=== PATIENT | female | born 1930 | race Caucasian/White ===

== ENCOUNTER 2017-10-04 19:01 | Emergency (ER) | payer MEDICARE ==
[~2017-10-04] VITALS: Ht 154.9 cm; Wt 70.5 kg
[~2017-10-04 19:01] MED LIST: DOCU100S TOP; HYZA50TA2 PO; lancets; test strips
[2017-10-04 19:06] VITALS: BP 181/79; PULSE 74; RESP 16; TEMP 97.7; O2SAT 97
[2017-10-04] MEDS ORDERED: VITA100064 PO (20:14)
[2017-10-04] MEDS ORDERED: LOVA10TA PO (20:14)
[2017-10-04] MEDS ORDERED: ASPI-147 PO (20:14)
[2017-10-04] MEDS ORDERED: LOSA50TA2 PO (20:14)
[2017-10-04] MEDS ORDERED: GLYB5TAB3 PO (20:14)
[2017-10-04] MEDS ORDERED: CEPH-460 PO (20:35)
--- NOTE | 2017-10-04 20:35 | PD ---
HPI Chief Complaint: Fall Time Seen by Provider: 20:13 Travel History International Travel<30 days: No Contact w/Intl Traveler<30days: No Traveled to known affect area: No History of Present Illness HPI 87-year-old female presents emergency department for evaluation of left lower extremity wound that occurred Wednesday. Patient states that she tripped and fell landing on her hands and her leg. Says that the rug caught her, resulting in this wound. She says she may have hit her head but denies blurred vision, LOC, headache, dizziness. Her concern is that the left lower extremity wound would not stop bleeding after multiple bandages. Patient does not take blood thinners. She denies any hand, wrist, shoulder or pain elsewhere. She has no other complaints today. PFSH Past Medical History Hx Anticoagulant Therapy: No Cardiovascular Problems: Yes High Cholesterol: Yes Chemotherapy: No COPD: Yes Cerebrovascular Accident: No Diabetes: Yes Patient Takes Glucophage: No Diminished Hearing: Yes Hypertension: Yes Respiratory: Yes (COPD) Immunizations Current: Yes Tetanus Vaccination: Unknown Influenza Vaccination: Yes ?: Not Menopausal: Yes Past Surgical History Surgical History: No Previous Surgery Hysterectomy: No Social History Alcohol Use: No Tobacco Use: No Substance Use: No Allergies-Medications (Allergen,Severity, Reaction): Coded Allergies: No Known Allergies (Unverified Adverse Reaction, Unknown, 10/04/17) Reported Meds & Prescriptions Reported Meds & Active Scripts Active Keflex (Cephalexin) 500 Mg Cap 500 Mg PO Q8H 5 Days Reported Vitamin D3 (Cholecalciferol) 1,000 Unit Tab 1,000 Units PO DAILY Losartan-Hydrochlorothiazide 50-12.5 Mg Tab 1 Tab PO DAILY Ecotrin Low Strength (Aspirin) 81 Mg Tabdr 81 Mg PO DAILY Lovastatin 10 Mg Tab 10 Mg PO DAILY Glyburide 5 Mg Tab 5 Mg PO DAILY Take with meals at the same time each day Review of Systems Except as stated in HPI: all other systems reviewed are Neg Physical Exam Narrative GENERAL: Well-nourished, well-developed patient. SKIN: Focused skin assessment warm/dry. HEAD: Normocephalic. EYES: No scleral icterus. No injection or drainage. NECK: Supple, trachea midline. No JVD CARDIOVASCULAR: Regular rate and rhythm without murmurs, gallops, or rubs. RESPIRATORY: Breath sounds equal bilaterally. No accessory muscle use. GASTROINTESTINAL: Abdomen soft, non-tender, nondistended. MUSCULOSKELETAL: No cyanosis, or edema. Left lower extremity- 4cm area with 2 small skin tears, appearing clean of debris. not actively bleeding. no surrounding erythema or edema. BACK: Nontender without obvious deformity. No CVA tenderness. Data Data Last Documented VS Vital Signs Date Time Temp Pulse Resp B/P (MAP) Pulse Ox O2 Delivery O2 Flow Rate FiO2 10/04/17 19:06 97.7 74 16 181/79 (113) 97 Orders Orders Wound Care (10/04/17 20:26) Tetanus/Diphtheria Tox Adult (Tetanus/Di (10/04/17 20:45) Ed Discharge Order (10/04/17 20:38) Cephalexin (Keflex) (10/04/17 20:45) MDM Medical Decision Making Medical Screen Exam Complete: Yes Emergency Medical Condition: Yes Differential Diagnosis Left lower extremity skin tear, cellulitis, erysipelas Narrative Course 87 y female presents to the ED with concerns of a left lower extremity wound that continued to bleed this weekend after a fall that occurred Wednesday. Patient is concerned because she is a diabetic. Denies any anticoagulants or blood thinner use. She does not remember her last tetanus vaccination. Because of history and physical, I did offer head CT as patient states she may have hit her head. Cranial nerves II through XII grossly intact. No obvious weakness. Family decided to defer and I did not feel overwhelmingly compelled obtain one today based off of history and physical. Perform wound care in the emergency department today. Tetanus vaccination administered. Keflex administered in the ED. Keflex for prophylaxis. Patient discharged wound care instructions. Monitor for signs of infection. Advised to follow-up with the primary care physician. Diagnosis Primary Impression: Skin tear of left lower leg without complication Qualified Codes: S81.812A - Laceration without foreign body, left lower leg, initial encounter Referrals: Primary Care Physician Additional Instructions: Follow up with your primary care physician within 2-3 days. Keep area clean and dry for 24 hours. After 24, you may bathe as normal but dry the area thoroughly. Change top dressings daily. you may leave the yellow dressing in place until it falls off on its own or 1 week. If bleeding starts, apply pressure and elevate the area. If you developed increased redness, swelling, or pain return to the emergency department as this could be a sign of infection. Take all medications as prescribed. Scripts Cephalexin (Keflex) 500 Mg Cap 500 MG PO Q8H for Infection for 5 Days, #15 CAP 0 Refills Prov: Chelly Wallace DO 10/04/17 Disposition: 01 DISCHARGE HOME Condition: Stable Stephanie Schneider Oct 04, 2017 20:35
[2017-10-04] MEDS ORDERED: CEPHALEXIN MONOHYDRATE 500 MG CAP PO ONE (20:45)
[2017-10-04] MEDS ORDERED: TETANUS/DIPHTHERIA TOXOID ADULT 0.5 ML VIAL IM ONE (20:45)
== END 2017-10-04 20:56 | disposition home or self-care (01) ==
LOC: PHED 19:01 → PHEFT 20:56
DX: S81.812A Laceration without foreign body, left lower leg, initial encounter (principal); E78.00 Pure hypercholesterolemia, unspecified; J44.9 Chronic obstructive pulmonary disease, unspecified; E11.9 Type 2 diabetes mellitus without complications; I10 Essential (primary) hypertension; W01.0XXA Fall on same level from slipping, tripping and stumbling without subsequent striking against object, initial encounter; Z79.899 Other long term (current) drug therapy; Z23 Encounter for immunization
CPT/HCPCS: 90471; 90714

== ENCOUNTER 2017-11-22 11:36 | Emergency (ER) | payer MEDICARE ==
[~2017-11-22 11:36] MED LIST changes: +ASPI-147 PO; +CEPH-460 PO; -DOCU100S TOP; +GLYB5TAB3 PO; -HYZA50TA2 PO; +LOSA50TA2 PO; +LOVA10TA PO; +VITA100064 PO; -lancets; -test strips
[2017-11-22 11:41] VITALS: BP 138/86; PULSE 74; RESP 18; TEMP 98.3; O2SAT 94
--- NOTE | 2017-11-22 12:31 | PD ---
HPI Chief Complaint: General Weakness Time Seen by Provider: 12:18 Travel History International Travel<30 days: No Contact w/Intl Traveler<30days: No Traveled to known affect area: No History of Present Illness HPI 87-year-old female presented ER for evaluation after fall. Patient states she felt dizzy and fell hit her right foot. Patient has no loss of consciousness or vomiting she did not hit her head, she has no motor or sensory symptoms, speech is normal, complaining of right foot pain. Pain is rated 3 out of 10, comes and goes, associated with bleeding from her big toenail that stopped spontaneously. Patient has a history of diabetes and hypertension compliant with her medications. Patient states that every time she gets up from bed she feels dizzy and the symptoms is been going on for the last 2 years. PFSH Past Medical History Hx Anticoagulant Therapy: No Cardiovascular Problems: Yes High Cholesterol: Yes Chemotherapy: No COPD: Yes Cerebrovascular Accident: No Diabetes: Yes Patient Takes Glucophage: No Diminished Hearing: Yes Hypertension: Yes Respiratory: Yes (COPD) Immunizations Current: Yes ?: Not Menopausal: Yes Past Surgical History Hysterectomy: No Social History Alcohol Use: No Tobacco Use: No Substance Use: No Allergies-Medications (Allergen,Severity, Reaction): Coded Allergies: No Known Allergies (Verified Adverse Reaction, Unknown, 11/22/17) Reported Meds & Prescriptions Reported Meds & Active Scripts Active Keflex (Cephalexin) 500 Mg Cap 500 Mg PO Q12H 7 Days Reported Vitamin D3 (Cholecalciferol) 1,000 Unit Tab 1,000 Units PO DAILY Losartan-Hydrochlorothiazide 50-12.5 Mg Tab 1 Tab PO DAILY Ecotrin Low Strength (Aspirin) 81 Mg Tabdr 81 Mg PO DAILY Lovastatin 10 Mg Tab 10 Mg PO DAILY Glyburide 5 Mg Tab 5 Mg PO DAILY Take with meals at the same time each day Review of Systems Except as stated in HPI: all other systems reviewed are Neg Physical Exam Narrative GENERAL: Alert oriented 3 no acute distress. SKIN: Focused skin assessment warm/dry. HEAD: Atraumatic. Normocephalic. EYES: Pupils equal and round. No scleral icterus. No injection or drainage. ENT: No nasal bleeding or discharge. Mucous membranes pink and moist. NECK: Trachea midline. No JVD. CARDIOVASCULAR: Regular rate and rhythm. No murmur appreciated. RESPIRATORY: No accessory muscle use. Clear to auscultation. Breath sounds equal bilaterally. GASTROINTESTINAL: Abdomen soft, non-tender, nondistended. Hepatic and splenic margins not palpable. MUSCULOSKELETAL: No obvious deformities. No clubbing. No cyanosis. No edema. NEUROLOGICAL: Awake and alert. No obvious cranial nerve deficits. Motor grossly within normal limits. Normal speech. PSYCHIATRIC: Appropriate mood and affect; insight and judgment normal. Data Data Last Documented VS Vital Signs Date Time Temp Pulse Resp B/P (MAP) Pulse Ox O2 Delivery O2 Flow Rate FiO2 11/22/17 15:42 11/22/17 15:19 67 20 94 11/22/17 11:41 98.3 Orders Orders B-Type Natriuretic Peptide (11/22/17 12:25) Ckmb (Isoenzyme) Profile (11/22/17 12:25) Complete Blood Count With Diff (11/22/17 12:25) Comprehensive Metabolic Panel (11/22/17 12:25) Troponin I (11/22/17 12:25) Chest, Single Ap (11/22/17 12:25) Orthostatic Vital Signs (11/22/17 12:25) Thyroid Stimulating Hormone (11/22/17 12:25) Ct Brain W/O Iv Contrast(Rout) (11/22/17 ) Foot, Complete ([id number]) (11/22/17 ) CKMB (11/22/17 12:30) CKMB% (11/22/17 12:30) Sodium Chlor 0.9% 1000 Ml Inj (Ns 1000 M (11/22/17 14:00) Ed Discharge Order (11/22/17 14:22) Urinalysis - C+S If Indicated (11/22/17 14:28) Labs Laboratory Tests Test 11/22/17 12:30 11/22/17 14:30 11/22/17 15:15 White Blood Count 7.6 TH/MM3 Red Blood Count 3.38 MIL/MM3 Hemoglobin 11.0 GM/DL Hematocrit 32.1 % Mean Corpuscular Volume 94.9 FL Mean Corpuscular Hemoglobin 32.5 PG Mean Corpuscular Hemoglobin Concent 34.3 % Red Cell Distribution Width 12.7 % Platelet Count 227 TH/MM3 Mean Platelet Volume 6.9 FL Neutrophils (%) (Auto) 82.8 % Lymphocytes (%) (Auto) 9.6 % Monocytes (%) (Auto) 5.2 % Eosinophils (%) (Auto) 2.1 % Basophils (%) (Auto) 0.3 % Neutrophils # (Auto) 6.3 TH/MM3 Lymphocytes # (Auto) 0.7 TH/MM3 Monocytes # (Auto) 0.4 TH/MM3 Eosinophils # (Auto) 0.2 TH/MM3 Basophils # (Auto) 0.0 TH/MM3 CBC Comment DIFF FINAL Differential Comment B-Type Natriuretic Peptide 92 PG/ML Thyroid Stimulating Hormone 3rd Gen 1.980 uIU/ML Urine Color YELLOW Urine Turbidity CLEAR Urine pH 6.5 Urine Specific [place] 1.010 Urine Protein NEG mg/dL Urine Glucose (UA) NEG mg/dL Urine Ketones NEG mg/dL Urine Occult Blood NEG Urine Nitrite NEG Urine Bilirubin NEG Urine Urobilinogen 0.2 MG/DL Urine Leukocyte Esterase SMALL Urine RBC 0-3 /hpf Urine WBC 0-2 /hpf Urine Squamous Epithelial Cells 0-5 /hpf Urine Bacteria FEW /hpf Microscopic Urinalysis Comment CULT NOT INDICATED Blood Urea Nitrogen 21 MG/DL Creatinine 1.20 MG/DL Random Glucose 192 MG/DL Total Protein 7.4 GM/DL Albumin 3.8 GM/DL Calcium Level 8.6 MG/DL Alkaline Phosphatase 86 U/L Aspartate Amino Transf (AST/SGOT) 9 U/L Alanine Aminotransferase (ALT/SGPT) 25 U/L Total Bilirubin 0.3 MG/DL Sodium Level 131 MEQ/L Potassium Level 4.6 MEQ/L Chloride Level 96 MEQ/L Carbon Dioxide Level 27.4 MEQ/L Anion Gap 8 MEQ/L Estimat Glomerular Filtration Rate 43 ML/MIN Total Creatine Kinase 152 U/L Creatine Kinase MB 2.2 NG/ML Troponin I 0.02 NG/ML [facility] Medical Decision Making Medical Screen Exam Complete: Yes Emergency Medical Condition: Yes Differential Diagnosis Orthostatic hypotension, dehydration, intracranial pathology. Narrative Course 87-year-old female presented ER for evaluation of fall after feeling dizzy. Patient states that she has been feeling dizzy for the last 2 years that comes and goes. Patient has history of diabetes and hypertension. Patient reports that she gets dizzy every time she gets up fast from the bed. Orthostatics ER normal, vitals are stable, low sodium but corrected sodium is 133 for hyperglycemia, patient was given IV fluids here and she improved and she does not feel any dizzy anymore, CAT scan is negative, x-ray of the right foot is negative. Patient is stable to be discharged to follow-up with her primary care physician and to return to your symptoms change or do not improve. Laboratory Tests Test 11/22/17 12:30 White Blood Count 7.6 TH/MM3 Red Blood Count 3.38 MIL/MM3 Hemoglobin 11.0 GM/DL Hematocrit 32.1 % Mean Corpuscular Volume 94.9 FL Mean Corpuscular Hemoglobin 32.5 PG Mean Corpuscular Hemoglobin Concent 34.3 % Red Cell Distribution Width 12.7 % Platelet Count 227 TH/MM3 Mean Platelet Volume 6.9 FL Neutrophils (%) (Auto) 82.8 % Lymphocytes (%) (Auto) 9.6 % Monocytes (%) (Auto) 5.2 % Eosinophils (%) (Auto) 2.1 % Basophils (%) (Auto) 0.3 % Neutrophils # (Auto) 6.3 TH/MM3 Lymphocytes # (Auto) 0.7 TH/MM3 Monocytes # (Auto) 0.4 TH/MM3 Eosinophils # (Auto) 0.2 TH/MM3 Basophils # (Auto) 0.0 TH/MM3 CBC Comment DIFF FINAL Differential Comment Blood Urea Nitrogen 21 MG/DL Creatinine 1.20 MG/DL Random Glucose 192 MG/DL Total Protein 7.4 GM/DL Albumin 3.8 GM/DL Calcium Level 8.6 MG/DL Alkaline Phosphatase 86 U/L Aspartate Amino Transf (AST/SGOT) 9 U/L Alanine Aminotransferase (ALT/SGPT) 25 U/L Total Bilirubin 0.3 MG/DL Sodium Level 131 MEQ/L Potassium Level 4.6 MEQ/L Chloride Level 96 MEQ/L Carbon Dioxide Level 27.4 MEQ/L Anion Gap 8 MEQ/L Estimat Glomerular Filtration Rate 43 ML/MIN Total Creatine Kinase 152 U/L Troponin I 0.02 NG/ML B-Type Natriuretic Peptide 92 PG/ML Thyroid Stimulating Hormone 3rd Gen 1.980 uIU/ML Last 24 hours Impressions Chest X-Ray 11/22/17 1225 Signed Impressions: CONCLUSION: Cardiomegaly. Clear lungs. Head CT 11/22/17 0000 Signed Impressions: CONCLUSION: 1. Negative CT Head non contrast. Foot X-Ray 11/22/17 0000 Signed Impressions: CONCLUSION: No acute abnormality. Diagnosis Primary Impression: Orthostatic hypotension Additional Impressions: Fall Qualified Codes: W19.XXXA - Unspecified fall, initial encounter UTI (urinary tract infection) Qualified Codes: N39.0 - Urinary tract infection, site not specified Additional Instructions: Follow-up with primary care physician and return here if symptoms change or do not improve. Scripts Cephalexin (Keflex) 500 Mg Cap 500 MG PO Q12H for Infection for 7 Days, #14 CAP 0 Refills Prov: Tolu Akhtar MD 11/22/17 Disposition: 01 DISCHARGE HOME Condition: Stable Tolu Akhtar MD Nov 22, 2017 12:31
[2017-11-22 12:39] VITALS: BP_SYST 156; BP_SYST 160; BP_SYST 164; BP_DIAS 65; BP_DIAS 68; BP_DIAS 69; RESP 20
[2017-11-22 12:51] LABS: AUTOMATED NEUTROPHIL # 6.3 TH/MM3 (1.8-7.7); BASOPHIL % 0.3 % (0.0-2.0); EOSINOPHIL # 0.2 TH/MM3 (0-0.4); EOSINOPHIL % 2.1 % (0.0-4.0); HEMATOCRIT 32.1 % (35.0-46.0); LYMPH % 9.6 % (9.0-44.0); LYMPHOCYTE # 0.7 TH/MM3 (1.0-4.8); MEAN CELL VOLUME 94.9 FL (80.0-100.0); MEAN CORPUSCULAR HEMOGLOBIN 32.5 PG (27.0-34.0); MEAN CORPUSCULAR HGB CONC 34.3 % (32.0-36.0); MEAN PLATELET VOLUME 6.9 FL (7.0-11.0); MONO % 5.2 % (0.0-8.0); MONOCYTE # 0.4 TH/MM3 (0-0.9); NEUT % 82.8 % (16.0-70.0); PLATELET COUNT 227 TH/MM3 (150-450); RED BLOOD COUNT 3.38 MIL/MM3 (4.00-5.30); RED CELL DISTRIBUTION WIDTH 12.7 % (11.6-17.2); WHITE BLOOD COUNT 7.6 TH/MM3 (4.0-11.0)
[2017-11-22 12:55] LABS: CHLORIDE 96 MEQ/L (98-107); SODIUM (NA) 131 MEQ/L (136-145)
[2017-11-22 12:59] LABS: ALBUMIN 3.8 GM/DL (3.4-5.0); BICARBONATE 27.4 MEQ/L (21.0-32.0); CALCIUM 8.6 MG/DL (8.5-10.1)
[2017-11-22 13:00] LABS: BLOOD UREA NITROGEN 21 MG/DL (7-18); GLUCOSE,RANDOM 192 MG/DL (74-106)
[2017-11-22 13:02] LABS: ALT (GPT) 25 U/L (10-53)
[2017-11-22 13:03] LABS: AST (GOT) 9 U/L (15-37); GLOMERULAR FILTRATION RATE 43 ML/MIN (>89)
[2017-11-22 13:04] LABS: TOTAL BILIRUBIN ADULT 0.3 MG/DL (0.2-1.0); TOTAL PROTEIN 7.4 GM/DL (6.4-8.2)
[2017-11-22 13:05] LABS: ALKALINE PHOSPHATASE 86 U/L (45-117)
[2017-11-22 13:07] LABS: TROPONIN I 0.02 NG/ML (0.02-0.05)
--- NOTE | 2017-11-22 13:27 | RADRPT ---
EXAM DATE: 11/22/2017 1:18 PM EDT AGE/SEX: 87 years / Female INDICATIONS: Dizziness, Patient Fell CLINICAL DATA: This is the patient's initial encounter. Patient reports that signs and symptoms have been present for 1 day and indicates a pain score of 3/10. MEDICAL/SURGICAL HISTORY: Diabetes. Chronic obstructive pulmonary disease. Hypertension. None . COMPARISON: POI, CT CHEST W/O CONTRAST, 04/19/2017. . FINDINGS: A single AP view of the chest demonstrates cardiomegaly. No pulmonary vascular engorgement appreciate d. A prominent pericardial fat pad at the right cardiophrenic angle generates a focal density. No infilt rate or effusion. A degenerative spine. CONCLUSION: Cardiomegaly. Clear lungs. Electronically signed by: Isidoro Lobo MD 11/22/2017 1:26 PM EDT
--- NOTE | 2017-11-22 13:28 | RADRPT ---
EXAM DATE: 11/22/2017 1:16 PM EDT AGE/SEX: 87 years / Female INDICATIONS: Laceration of Great toe CLINICAL DATA: This is the patient's initial encounter. Patient reports that signs and symptoms have been present for 1 day and indicates a pain score of 4/10. MEDICAL/SURGICAL HISTORY: Diabetes. Hypertension. Chronic obstructive pulmonary disease. None . COMPARISON: No prior exams available for comparison. FINDINGS: Bony structures are intact and in normal alignment. Osseous density is normal. Soft tissues are unre markable. No radiopaque foreign bodies seen. CONCLUSION: No acute abnormality. Electronically signed by: Isidoro Lobo MD 11/22/2017 1:27 PM EDT
--- NOTE | 2017-11-22 13:31 | RADRPT ---
EXAM DATE: 11/22/2017 1:24 PM EDT AGE/SEX: 87 years / Female INDICATIONS: Possible syncopal episode today. CLINICAL DATA: This is the patient's initial encounter. Patient reports that signs and symptoms have been present for 1 day and indicates a pain score of 0/10. MEDICAL/SURGICAL HISTORY: Chronic obstructive pulmonary disease. Diabetes. Hypertension. None. RADIATION DOSE: 54.06 CTDI (mGy) COMPARISON: No prior exams available for comparison. TECHNIQUE: CT of the head without contrast. Using automated exposure control and adjustment of the mA and/or kV according to patient size, radiation dose was kept as low as reasonably achievable to ob tain optimal diagnostic quality images. FINDINGS: Cerebrum: The ventricles are normal for age. No evidence of midline shift, mass lesion, hemorrhage or acute infarction. No extraaxial fluid collections are seen. Posterior Fossa: The cerebellum and brainstem are intact. The 4th ventricle is midline. The cerebe llopontine angle is unremarkable. Extracranial: The visualized portion of the orbits is intact. Skull: The calvaria is intact. No evidence of skull fracture. CONCLUSION: 1. Negative CT Head non contrast. Electronically signed by: Tj Doll MD 11/22/2017 1:30 PM EDT
[2017-11-22 13:47] VITALS: BP 165/67; PULSE 65; RESP 20; O2SAT 94
[2017-11-22] MEDS ORDERED: SODIUM CHLOR 0.9% 1000 ML INJ 1,000 ML IV ONE (14:00)
[2017-11-22 14:48] LABS: BILIRUBIN, URINE NEG (NEG); BLOOD, URINE NEG (NEG); GLUCOSE,URINE NEG (NEG); KETONE, URINE NEG (NEG); NITRITE,URINE NEG (NEG); PH, URINE 6.5 (5.0-8.5); URINE COLOR YELLOW (YELLW/STRAW); URINE LEUKOCYTE ESTERASE SMALL (NEG)
[2017-11-22 15:03] LABS: BACTERIA, URINE FEW /hpf; RBC, URINE 0-3 /hpf (0-3); SQUAMOUS EPITHELIAL CELL URINE 0-5 /hpf (0-5); WBC, URINE 0-2 /hpf (0-5)
[2017-11-22] MEDS ORDERED: CEPH-460 PO (15:05)
[2017-11-22 15:19] VITALS: BP 164/90; PULSE 67; RESP 20; O2SAT 94
== END 2017-11-22 15:43 | disposition home or self-care (01) ==
LOC: PHED 11:36
DX: I95.1 Orthostatic hypotension (principal); N39.0 Urinary tract infection, site not specified; I51.7 Cardiomegaly; R42 Dizziness and giddiness; E11.9 Type 2 diabetes mellitus without complications; I10 Essential (primary) hypertension; E78.00 Pure hypercholesterolemia, unspecified; J44.9 Chronic obstructive pulmonary disease, unspecified; Z79.899 Other long term (current) drug therapy
CPT/HCPCS: 70450; 71045; 73630; 80053; 81001; 82550; 82552; 83880; 84443; 84484; 85025; 96360; 99285; J7030

== ENCOUNTER 2017-12-07 13:40 | Emergency (ER) | payer MEDICARE ==
[~2017-12-07] VITALS: Ht 152.4 cm; Wt 70.0 kg
[2017-12-07 14:01] VITALS: BP 145/63; PULSE 75; RESP 18; TEMP 98.1; O2SAT 98
[2017-12-07] MEDS ORDERED: SODIUM CHLOR 0.9% 1000 ML INJ 1,000 ML IV ONE (14:45)
[2017-12-07] MEDS ORDERED: RESP: ALBUTEROL 2.5 MG/IPRATROPIUM 0.5 MG NEB (SCH) NEB ONE (14:45)
[2017-12-07] MEDS ORDERED: TIOT1AER INH (14:45)
--- NOTE | 2017-12-07 14:46 | PD ---
HPI Chief Complaint: Dizziness Time Seen by Provider: 14:25 Travel History International Travel<30 days: No Contact w/Intl Traveler<30days: No Traveled to known affect area: No History of Present Illness HPI This is an 87-year-old female who presents to the emergency department with lightheadedness and dizziness that have been going on for 2 weeks or longer, intermittent, worse with exertion and improved with rest associated with increasing shortness of breath. The patient has a history of COPD but only takes one inhaler a day. She has been having frequent falls. She was seen for a fall 2 weeks ago and had an extensive workup at that time which was reassuring. She has not seen her primary care doctor since that episode. She denies any chest pain. She comes in today because this morning she felt very lightheaded and felt like she was going to pass out. She denies any blood in her stools. PFSH Past Medical History Hx Anticoagulant Therapy: No Cardiovascular Problems: Yes High Cholesterol: Yes Chemotherapy: No COPD: Yes Cerebrovascular Accident: No Diabetes: Yes Patient Takes Glucophage: Yes Diminished Hearing: Yes Hypertension: Yes Respiratory: Yes (COPD) Immunizations Current: Yes Influenza Vaccination: Yes ?: Not Menopausal: Yes Past Surgical History Surgical History: No Previous Surgery Hysterectomy: No Social History Alcohol Use: No Tobacco Use: No Substance Use: No Allergies-Medications (Allergen,Severity, Reaction): Coded Allergies: No Known Allergies (Verified Adverse Reaction, Unknown, 12/07/17) Reported Meds & Prescriptions Reported Meds & Active Scripts Active Proair Hfa 8.5 GM Inh (Albuterol Sulfate) 90 Mcg/Act Aer 2 Puff INH Q4-6H PRN 108 mcg/actuation Reported Stiolto Respimat Inh (Tiotropium-Olodaterol Inh) 2.5-2.5 Mcg/Act Aero 2 Puff INH DAILY Vitamin D3 (Cholecalciferol) 1,000 Unit Tab 1,000 Units PO DAILY Losartan-Hydrochlorothiazide 50-12.5 Mg Tab 1 Tab PO DAILY Ecotrin Low Strength (Aspirin) 81 Mg Tabdr 81 Mg PO DAILY Glyburide 5 Mg Tab 5 Mg PO DAILY Take with meals at the same time each day Review of Systems Except as stated in HPI: all other systems reviewed are Neg Physical Exam Narrative GENERAL: Frail elderly female SKIN: Pale HEAD: Atraumatic. Normocephalic. EYES: Pupils equal and round. No injection or drainage. ENT: Moist mucous membranes NECK: Trachea midline. CARDIOVASCULAR: Regular rate and rhythm. No murmur appreciated. RESPIRATORY: Mild diffuse expiratory wheezing GASTROINTESTINAL: Abdomen soft, non-tender, nondistended. MUSCULOSKELETAL: No obvious deformities. NEUROLOGICAL: Awake and alert. No obvious cranial nerve deficits. Moving all extremities. PSYCHIATRIC: Appropriate mood and affect; insight and judgment normal. Data Data Last Documented VS Vital Signs Date Time Temp Pulse Resp B/P (MAP) Pulse Ox O2 Delivery O2 Flow Rate FiO2 12/07/17 15:02 70 17 146/59 (88) 96 Room Air 12/07/17 14:01 98.1 Orders Orders Complete Blood Count With Diff (12/07/17 14:37) Comprehensive Metabolic Panel (12/07/17 14:37) Albuterol-Ipratropium Neb (Duoneb Neb) (12/07/17 14:45) Troponin I (12/07/17 14:37) Sodium Chlor 0.9% 1000 Ml Inj (Ns 1000 M (12/07/17 14:45) ^ Insert Iv (12/07/17 14:38) Labs Laboratory Tests Test 12/07/17 14:57 White Blood Count 5.5 TH/MM3 Red Blood Count 3.17 MIL/MM3 Hemoglobin 10.3 GM/DL Hematocrit 29.3 % Mean Corpuscular Volume 92.4 FL Mean Corpuscular Hemoglobin 32.5 PG Mean Corpuscular Hemoglobin Concent 35.2 % Red Cell Distribution Width 12.8 % Platelet Count 266 TH/MM3 Mean Platelet Volume 6.4 FL Neutrophils (%) (Auto) 79.3 % Lymphocytes (%) (Auto) 12.5 % Monocytes (%) (Auto) 5.2 % Eosinophils (%) (Auto) 2.3 % Basophils (%) (Auto) 0.7 % Neutrophils # (Auto) 4.4 TH/MM3 Lymphocytes # (Auto) 0.7 TH/MM3 Monocytes # (Auto) 0.3 TH/MM3 Eosinophils # (Auto) 0.1 TH/MM3 Basophils # (Auto) 0.0 TH/MM3 CBC Comment DIFF FINAL Differential Comment Blood Urea Nitrogen 19 MG/DL Creatinine 1.10 MG/DL Random Glucose 217 MG/DL Total Protein 7.2 GM/DL Albumin 3.8 GM/DL Calcium Level 8.6 MG/DL Alkaline Phosphatase 85 U/L Aspartate Amino Transf (AST/SGOT) 6 U/L Alanine Aminotransferase (ALT/SGPT) 22 U/L Total Bilirubin 0.2 MG/DL Sodium Level 130 MEQ/L Potassium Level 4.4 MEQ/L Chloride Level 94 MEQ/L Carbon Dioxide Level 27.7 MEQ/L Anion Gap 8 MEQ/L Estimat Glomerular Filtration Rate 47 ML/MIN Troponin I LESS THAN 0.02 NG/ML MDM Medical Decision Making Medical Screen Exam Complete: Yes Emergency Medical Condition: Yes Interpretation(s) afebrile, no tachycardia, mild hypertension anemia similar to prior Mild hyponatremia Mild renal insufficiency Troponin is normal Differential Diagnosis Anemia, electrolyte abnormality, dehydration, myocardial infarction, arrhythmia , COPD exacerbation Narrative Course This is an 87-year-old female who presents to the emergency department with increasing lightheadedness, dizziness and exertional intolerance over the past several weeks. She had an extensive workup 2 weeks ago in the emergency department which was reassuring. She is wheezing on exam. Given the description of her symptoms I think her COPD is out of control. She was given a bronchodilator treatment and she feels better. She will be discharged on albuterol and prednisone and was asked to follow-up with her primary care physician for continued workup. Diagnosis Primary Impression: COPD (chronic obstructive pulmonary disease) Qualified Codes: J44.1 - Chronic obstructive pulmonary disease with (acute) exacerbation Patient Instructions: General Instructions Additional Instructions: If you develop severe shortness of breath, chest pain, or difficulty breathing return to the emergency department. Use albuterol every 4 hours for the next 2 days. Then use as needed for wheezing. Complete your course of steroids. Follow up with your primary care physician in 2-3 days if your symptoms have not improved. Med/Other Pt SpecificInfo: Prescription(s) given Scripts Prednisone (Prednisone) 20 Mg Tab 40 MG PO DAILY, #10 TAB 0 Refills Take 40 mg (2 tablets) daily for 5 days Prov: Laurel Lubin MD 12/07/17 Albuterol 8.5 GM Inh (Proair Hfa 8.5 GM Inh) 90 Mcg/Act Aer 2 PUFF INH Q4-6H Y for SHORTNESS OF BREATH, #1 INHALER 0 Refills 108 mcg/actuation Prov: Laurel Lubin MD 12/07/17 Disposition: 01 DISCHARGE HOME Condition: Stable Laurel Lubin MD Dec 07, 2017 14:46
[2017-12-07 15:02] VITALS: BP 146/59; PULSE 70; RESP 17; O2SAT 96
[2017-12-07 15:04] LABS: AUTOMATED NEUTROPHIL # 4.4 TH/MM3 (1.8-7.7); BASOPHIL % 0.7 % (0.0-2.0); EOSINOPHIL # 0.1 TH/MM3 (0-0.4); EOSINOPHIL % 2.3 % (0.0-4.0); HEMATOCRIT 29.3 % (35.0-46.0); HEMOGLOBIN 10.3 GM/DL (11.6-15.3); LYMPH % 12.5 % (9.0-44.0); LYMPHOCYTE # 0.7 TH/MM3 (1.0-4.8); MEAN CELL VOLUME 92.4 FL (80.0-100.0); MEAN CORPUSCULAR HEMOGLOBIN 32.5 PG (27.0-34.0); MEAN CORPUSCULAR HGB CONC 35.2 % (32.0-36.0); MEAN PLATELET VOLUME 6.4 FL (7.0-11.0); MONO % 5.2 % (0.0-8.0); MONOCYTE # 0.3 TH/MM3 (0-0.9); NEUT % 79.3 % (16.0-70.0); PLATELET COUNT 266 TH/MM3 (150-450); RED BLOOD COUNT 3.17 MIL/MM3 (4.00-5.30); RED CELL DISTRIBUTION WIDTH 12.8 % (11.6-17.2); WHITE BLOOD COUNT 5.5 TH/MM3 (4.0-11.0)
[2017-12-07 15:21] LABS: CHLORIDE 94 MEQ/L (98-107); SODIUM (NA) 130 MEQ/L (136-145)
[2017-12-07 15:24] LABS: ALBUMIN 3.8 GM/DL (3.4-5.0); BICARBONATE 27.7 MEQ/L (21.0-32.0); CALCIUM 8.6 MG/DL (8.5-10.1); GLUCOSE,RANDOM 217 MG/DL (74-106)
[2017-12-07 15:25] LABS: BLOOD UREA NITROGEN 19 MG/DL (7-18)
[2017-12-07 15:27] LABS: ALT (GPT) 22 U/L (10-53)
[2017-12-07 15:28] LABS: AST (GOT) 6 U/L (15-37); GLOMERULAR FILTRATION RATE 47 ML/MIN (>89)
[2017-12-07 15:29] LABS: TOTAL BILIRUBIN ADULT 0.2 MG/DL (0.2-1.0); TOTAL PROTEIN 7.2 GM/DL (6.4-8.2)
[2017-12-07 15:30] LABS: ALKALINE PHOSPHATASE 85 U/L (45-117)
[2017-12-07 15:32] LABS: TROPONIN I LESS THAN 0.02 NG/ML (0.02-0.05)
[2017-12-07] MEDS ORDERED: ALBUAER3 INH (16:22)
[2017-12-07] MEDS ORDERED: PRED20 PO (17:06)
[2017-12-07 17:17] VITALS: BP 159/71
--- NOTE | 2017-12-08 21:19 | EKG ---
Date Performed: 12/07/2017 Time Performed: 16:23:26 PTAGE: 87 years EKG: Sinus rhythm WITH FIRST DEGREE AV BLOCK LOW QRS VOLTAGE IN PRECORDIAL LEADS MINIMAL ST DEPRESSION ABNORMAL ECG PREVIOUS TRACING : 12/17/2011 11.21 Since the previous tracing, no significant change noted DOCTOR: Chapo Ingram Interpretating Date/Time 12/08/2017 21:18:22
== END 2017-12-07 17:20 | disposition home or self-care (01) ==
LOC: PHEFT 13:40
DX: J44.1 Chronic obstructive pulmonary disease with (acute) exacerbation (principal); R42 Dizziness and giddiness; I10 Essential (primary) hypertension; E11.9 Type 2 diabetes mellitus without complications; R94.31 Abnormal electrocardiogram [ECG] [EKG]; Z79.84 Long term (current) use of oral hypoglycemic drugs
CPT/HCPCS: 80053; 84484; 85025; 93005; 94664; 96360; 99284; J7030

== ENCOUNTER 2017-12-17 11:26 | Inpatient (IN) ==
--- NOTE | 2017-12-17 11:47 | ED ---
HPI General Chief Complaint: Fall Stated Complaint: Lt Thigh Pain after fall Time Seen by Provider: 12/17/17 11:37 Source: patient and family (Daughter) Mode of arrival: EMS (Patient has to use walker but uses only when she remembers as per the daughter) Limitations: no limitations History of Present Illness HPI Narrative: 87-year-old female came to the emergency room brought by EMS after sustaining a fall at her home. The history is obtained from the daughter as well as the patient. Patient says that her legs gave out as she was walking and she fell. She injured mostly the left side of her body and the reason she is in the emergency room is because her left leg in the proximal thigh in the hip area has been hurting. She points mostly to the buttock area. Patient says that she thinks she hit her head on the left side as well. The daughter says that she supposed to use her walker but she sometimes forgets. The walker is mainly to assist her because she has fallen a few times due to dizziness. However today she denies being dizzy. Denies any syncopal episodes. Patient was unable to get up from the floor after she fell. The daughter came home 20 minutes after the patient fell and helped her stand up. She called 911. Patient lives by herself. Daughter found her awake and talking. Patient takes one baby aspirin every day. Vital signs are currently stable. She is answering questions appropriately. Patient has her left elbow bandaged by EMS. Apparently there was a cut there that was bleeding. As per the daughter she had her last tetanus shot last month. Onset (ago): minute(s) (30) Fall from: standing Place fall occurred: home Loss of consciousness: none Prolonged down time: no Symptoms prior to fall: other (Legs gave out) Location of injury: buttocks (Left) Location of injury - extremities: Left: elbow (Skin tear with bleeding) Severity: moderate Severity scale (1-10): 6 Quality: dull Associated symptoms (after fall): unable to walk Related Data Home Medications Medication Instructions Recorded Confirmed aspirin [Aspir-81] 81 mg PO DAILY 12/17/17 12/17/17 cholecalciferol (vitamin D3) 1,000 unit PO DAILY 12/17/17 12/17/17 [Vitamin D3] glyburide 5 mg PO HS 07/06/18 07/06/18 lovastatin 10 mg PO HS 12/17/17 12/17/17 Allergies Allergy/AdvReac Type Severity Reaction Status Date / Time No Known Allergies Allergy Unverified 12/17/17 11:34 Review of Systems ROS Unobtainable All other systems reviewed negative except as stated in HPI Musculoskeletal Reports as per HPI and Reports limited range of motion [facility] History History Provided By: Patient and Family Member (Daughter) Social History Social History Substance History: No History of Abuse Second Hand Smoke Exposure: No Smoking Status: Former smoker Tobacco Type: Cigarettes How Often Do You Have a Drink Containing Alcohol: Never Recent Travel in [facility] within the Last 8 Weeks: No Recent Out of Country Travel within the Last 8 Weeks: No Immunization History Tetanus Immunization: <5 Years Tetanus Immunization Year if Known: Last month this year Exam Narrative Exam Narrative: GENERAL: Awake, alert, elderly, moderate distress SKIN: Focused skin assessment warm/dry. Pale. Left elbow has a 5 cm skin tear , bleeding controlled HEAD: Atraumatic. Normocephalic. EYES: Pupils equal and round. No scleral icterus. No injection or drainage. ENT: No nasal bleeding or discharge. Mucous membranes pink and moist. NECK: Trachea midline. No JVD. CARDIOVASCULAR: Regular rate and rhythm. No murmur appreciated. RESPIRATORY: No accessory muscle use. Clear to auscultation. Breath sounds equal bilaterally. GASTROINTESTINAL: Abdomen soft, non-tender, nondistended. Hepatic and splenic margins not palpable. MUSCULOSKELETAL: No obvious deformities. No clubbing. No cyanosis. No edema. Decreased range of motion at the left knee and hip joint mainly due to the pain. No leg length discrepancy. NEUROLOGICAL: Awake and alert. No obvious cranial nerve deficits. Motor grossly within normal limits. Normal speech. PSYCHIATRIC: Appropriate mood and affect; insight and judgment normal. Course Reevaluation(s) Reevaluation #1: Awaiting for the x-ray of the femur and pelvis. I have ordered a CT scan of her head as well. Awaiting for blood test results. Patient has been medicated for pain. If the x-ray is negative for fracture then I will order a CT scan to rule out any subtle fracture since the pain seems to be significant. Time: 11:57 Initial Documented Vital Signs Temperature 97.9 F 12/17/17 11:29 Pulse Rate 81 07/06/18 11:29 Respiratory Rate 16 12/17/17 11:29 Blood Pressure 155/107 H 12/17/17 11:29 Pulse Oximetry 95 12/17/17 11:29 Last Documented Vital Signs Temperature 96.8 F L 12/18/17 08:01 Pulse Rate 64 12/18/17 08:01 Respiratory Rate 20 12/18/17 08:01 Blood Pressure 166/70 H 12/18/17 08:01 Pulse Oximetry 95 12/18/17 08:01 Medical Decision Making MDM Narrative Medical decision making narrative: CT head is negative. X-ray of the hip and pelvis shows left inferior and superior pubic ramus fractures that are nondisplaced. Patient remains hemodynamically stable. Blood test results suggestive of slight dehydration. I will give her a 500 cc fluid bolus. I put a call out for the orthopedist. I discussed the case with the orthopedist Dr. Duarte who informed me that he had looked at the x-ray and the injuries appear to be nonoperative. I discussed with the hospitalist and I have admitted the patient. She will require rehab. I have informed the patient and the daughter of the test results as well as the plan. They are okay with the plan. Lab Data Result diagrams: 12/17/17 12:00 12/17/17 12:00 Lab Results 12/17/17 12/17/17 12/17/17 Range/Units 12:00 12:00 12:00 CBC w Diff Auto diff final WBC 10.2 (4.0-11.0) th/mm3 RBC 3.33 L (4.00-5.30) mil/mm3 Hgb 10.6 L (11.6-15.3) gm/dL Hct 31.6 L (35.0-46.0) % MCV 94.6 (80.0-100.0) fL MCH 31.8 (27.0-34.0) pg MCHC 33.6 (32.0-36.0) % RDW 12.7 (11.6-17.2) % Plt Count 241 (150-450) th/mm3 MPV 6.8 L (7.0-11.0) fL Neut % (Auto) 87.5 H (16.0-70.0) % Lymph % (Auto) 5.6 L (9.0-44.0) % [place] % (Auto) 4.8 (0.0-8.0) % Eos % (Auto) 0.7 (0.0-4.0) % Baso % (Auto) 1.4 (0.0-2.0) % Neut # (Auto) 8.9 H (1.8-7.7) th/mm3 Lymph # (Auto) 0.6 L (1.0-4.8) th/mm3 [place] # (Auto) 0.5 (0.0-0.9) th/mm3 Eos # (Auto) 0.1 (0.0-0.4) th/mm3 Baso # (Auto) 0.1 (0.0-0.2) th/mm3 WBC Differential . Differential Comment . PT 10.4 (9.8-11.6) sec INR 1.0 Ratio Sodium 134 L (136-145) meq/L Potassium 4.6 (3.5-5.1) meq/L Chloride 97 L (98-107) meq/L Carbon Dioxide 25.9 (21.0-32.0) meq/L Anion Gap 11 (5-15) meq/L BUN 23 H (7-18) mg/dL Creatinine 1.30 H (0.50-1.00) mg/dL Estimated GFR 39 L (>89) mL/min POC Glucose (68-110) mg/dl Random Glucose 248 H (74-106) mg/dL Calcium 8.7 (8.5-10.1) mg/dL Troponin I 0.02 (0.02-0.05) ng/mL Ur Collection Type Urine Color (Yellw/Straw) Urine Clarity (Clear) Urine pH (5.0-8.5) Ur Specific [place] (1.002-1.035) Urine Protein (Neg-Trace) mg/dL Urine Glucose (UA) (Negative) mg/dL Urine Ketones (Negative) mg/dL Urine Occult Blood (Negative) Urine Nitrate (Negative) Urine Bilirubin (Negative) Urine Urobilinogen (Less than 2) mg/dL Ur Leukocyte Esterase (Negative) Urine RBC (0-3) /hpf Urine WBC (0-5) /hpf Ur Squamous Epith Cells (0-5) /hpf Hyaline Casts (0-3) /lpf Micro UA Comment Urine Culture Comments 12/17/17 12/17/17 12/17/17 Range/Units 12:00 15:37 21:13 CBC w Diff WBC (4.0-11.0) th/mm3 RBC (4.00-5.30) mil/mm3 Hgb (11.6-15.3) gm/dL Hct (35.0-46.0) % MCV (80.0-100.0) fL MCH (27.0-34.0) pg MCHC (32.0-36.0) % RDW (11.6-17.2) % Plt Count (150-450) th/mm3 MPV (7.0-11.0) fL Neut % (Auto) (16.0-70.0) % Lymph % (Auto) (9.0-44.0) % [place] % (Auto) (0.0-8.0) % Eos % (Auto) (0.0-4.0) % Baso % (Auto) (0.0-2.0) % Neut # (Auto) (1.8-7.7) th/mm3 Lymph # (Auto) (1.0-4.8) th/mm3 [place] # (Auto) (0.0-0.9) th/mm3 Eos # (Auto) (0.0-0.4) th/mm3 Baso # (Auto) (0.0-0.2) th/mm3 WBC Differential Differential Comment PT (9.8-11.6) sec INR Ratio Sodium (136-145) meq/L Potassium (3.5-5.1) meq/L Chloride (98-107) meq/L Carbon Dioxide (21.0-32.0) meq/L Anion Gap (5-15) meq/L BUN (7-18) mg/dL Creatinine (0.50-1.00) mg/dL Estimated GFR (>89) mL/min POC Glucose 140 H 146 H (68-110) mg/dl Random Glucose (74-106) mg/dL Calcium (8.5-10.1) mg/dL Troponin I (0.02-0.05) ng/mL Ur Collection Type Clean catch Urine Color Yellow (Yellw/Straw) Urine Clarity Clear (Clear) Urine pH 5.5 (5.0-8.5) Ur Specific [place] 1.025 (1.002-1.035) Urine Protein Negative (Neg-Trace) mg/dL Urine Glucose (UA) 250 H (Negative) mg/dL Urine Ketones Trace H (Negative) mg/dL Urine Occult Blood Negative (Negative) Urine Nitrate Negative (Negative) Urine Bilirubin Negative (Negative) Urine Urobilinogen 0.2 (Less than 2) mg/dL Ur Leukocyte Esterase Negative (Negative) Urine RBC 0-3 (0-3) /hpf Urine WBC 0-5 (0-5) /hpf Ur Squamous Epith Cells 0-5 (0-5) /hpf Hyaline Casts 4-10 H (0-3) /lpf Micro UA Comment Culture not ind Urine Culture Comments Culture not ind 12/18/17 Range/Units 08:19 CBC w Diff WBC (4.0-11.0) th/mm3 RBC (4.00-5.30) mil/mm3 Hgb (11.6-15.3) gm/dL Hct (35.0-46.0) % MCV (80.0-100.0) fL MCH (27.0-34.0) pg MCHC (32.0-36.0) % RDW (11.6-17.2) % Plt Count (150-450) th/mm3 MPV (7.0-11.0) fL Neut % (Auto) (16.0-70.0) % Lymph % (Auto) (9.0-44.0) % [place] % (Auto) (0.0-8.0) % Eos % (Auto) (0.0-4.0) % Baso % (Auto) (0.0-2.0) % Neut # (Auto) (1.8-7.7) th/mm3 Lymph # (Auto) (1.0-4.8) th/mm3 [place] # (Auto) (0.0-0.9) th/mm3 Eos # (Auto) (0.0-0.4) th/mm3 Baso # (Auto) (0.0-0.2) th/mm3 WBC Differential Differential Comment PT (9.8-11.6) sec INR Ratio Sodium (136-145) meq/L Potassium (3.5-5.1) meq/L Chloride (98-107) meq/L Carbon Dioxide (21.0-32.0) meq/L Anion Gap (5-15) meq/L BUN (7-18) mg/dL Creatinine (0.50-1.00) mg/dL Estimated GFR (>89) mL/min POC Glucose 175 H (68-110) mg/dl Random Glucose (74-106) mg/dL Calcium (8.5-10.1) mg/dL Troponin I (0.02-0.05) ng/mL Ur Collection Type Urine Color (Yellw/Straw) Urine Clarity (Clear) Urine pH (5.0-8.5) Ur Specific [place] (1.002-1.035) Urine Protein (Neg-Trace) mg/dL Urine Glucose (UA) (Negative) mg/dL Urine Ketones (Negative) mg/dL Urine Occult Blood (Negative) Urine Nitrate (Negative) Urine Bilirubin (Negative) Urine Urobilinogen (Less than 2) mg/dL Ur Leukocyte Esterase (Negative) Urine RBC (0-3) /hpf Urine WBC (0-5) /hpf Ur Squamous Epith Cells (0-5) /hpf Hyaline Casts (0-3) /lpf Micro UA Comment Urine Culture Comments Imaging Data Radiologist's impression: ITS Impressions Chest X-Ray 12/17/17 11:47 CONCLUSION: No acute intrathoracic disease. Stable examination. Femur X-Ray 12/17/17 11:47 CONCLUSION: 1. There are some nondisplaced fractures involving the superior and inferior pubic ramus on the left side. 2. No acute fracture or joint dislocation involving the femur. Head CT 12/17/17 11:47 CONCLUSION: 1. No acute intracranial abnormalities. Pelvis X-Ray 12/17/17 11:47 CONCLUSION: Nondisplaced fractures involving the superior and inferior left pubic ramus. ECG Data Attestation: I personally reviewed and interpreted this ECG as follows: Interpretation: Twelve-lead EKG was reviewed by me. Normal sinus rhythm, normal axis, first-degree AV block. Heart rate of 77 bpm. Discharge Plan Discharge Disposition Patient Disposition: 03 Discharge to SNF Discharge Condition Condition: Fair Discharge Order Discharge Orders: Discharge Order (Routine); Ordered 12/17/17 Ordered By: Xavier Williamson Discharge Details Anticipated Discharge Date: 12/17/17 Diagnosis: Fall, Closed pelvic fracture, Dehydration Physicians Team ED Provider: Valentine Carlin Primary Care Provider: Aidan Yanez Attending Provider: Gael Harley Other Providers: Katy Marroquin,[place] ; [facility],Insurance Status ED Status: Left Department Discharge Information Discharge Date/Time: 12/17/17 14:10 Discharge Location: [facility]
[2017-12-17 12:11] LABS: Baso # (Auto) 0.1 th/mm3 (0.0-0.2); Baso % (Auto) 1.4 % (0.0-2.0); Eos # (Auto) 0.1 th/mm3 (0.0-0.4); Eos % (Auto) 0.7 % (0.0-4.0); Hematocrit 31.6 % (35.0-46.0); Hemoglobin 10.6 gm/dL (11.6-15.3); Lymph # (Auto) 0.6 th/mm3 (1.0-4.8); Lymph % (Auto) 5.6 % (9.0-44.0); Mean Corpuscular HGB Conc 33.6 % (32.0-36.0); Mean Corpuscular Hemoglobin 31.8 pg (27.0-34.0); Mean Corpuscular Volume 94.6 fL (80.0-100.0); Mean Platelet Volume 6.8 fL (7.0-11.0); Mono # (Auto) 0.5 th/mm3 (0.0-0.9); Mono % (Auto) 4.8 % (0.0-8.0); Neut # (Auto) 8.9 th/mm3 (1.8-7.7); Neut % (Auto) 87.5 % (16.0-70.0); Platelet Count 241 th/mm3 (150-450); Red Blood Count 3.33 mil/mm3 (4.00-5.30); Red Cell Distribution Width 12.7 % (11.6-17.2); White Blood Count 10.2 th/mm3 (4.0-11.0)
[2017-12-17 12:22] LABS: Prothrombin Time 10.4 sec (9.8-11.6)
[2017-12-17 12:23] LABS: Potassium 4.6 meq/L (3.5-5.1)
[2017-12-17 12:26] LABS: Calcium 8.7 mg/dL (8.5-10.1); Carbon Dioxide 25.9 meq/L (21.0-32.0)
[2017-12-17 12:34] LABS: Troponin I 0.02 ng/mL (0.02-0.05)
--- NOTE | 2017-12-17 12:47 | CT ---
EXAM DATE: 12/17/2017 12:39 PM EDT AGE/SEX: 87 years / Female INDICATIONS: Trauma, fall. CLINICAL DATA: This is the patient's initial encounter. Patient reports that signs and symptoms have been present for 1 day and indicates a pain score of 4/10. MEDICAL/SURGICAL HISTORY: Chronic obstructive pulmonary disease. Diabetes. Hypertension. None. RADIATION DOSE: 51.98 CTDI (mGy) COMPARISON: No prior exams available for comparison. TECHNIQUE: CT of the head without contrast. Using automated exposure control and adjustment of the mA and/or kV according to patient size, radiation dose was kept as low as reasonably achievable to ob tain optimal diagnostic quality images. DICOM format image data is available electronically for revi ew and comparison. FINDINGS: Cerebrum: The ventricles are normal for age. No evidence of midline shift, mass lesion, hemorrhage or acute infarction. No extraaxial fluid collections are seen. Posterior Fossa: The cerebellum and brainstem are intact. The 4th ventricle is midline. The cerebe llopontine angle is unremarkable. Extracranial: The visualized portion of the orbits is intact. Skull: The calvaria is intact. No evidence of skull fracture. CONCLUSION: 1. No acute intracranial abnormalities. Electronically signed by: Toni Banks MD 12/17/2017 12:45 PM EDT
--- NOTE | 2017-12-17 12:51 | XR ---
EXAM DATE: 12/17/2017 12:39 PM EDT AGE/SEX: 87 years / Female INDICATIONS: Short of breath. CLINICAL DATA: This is the patient's initial encounter. Patient reports that signs and symptoms have been present for 1 day and indicates a pain score of 0/10. MEDICAL/SURGICAL HISTORY: Diabetes mellitus type II. Chronic obstructive pulmonary disease. H ypertension. None. COMPARISON: [facility], CHEST SINGLE AP, 11/22/2017. . FINDINGS: PA and lateral views of the chest demonstrate the lungs to be symmetrically aerated without evidence of mass, infiltrate or effusion. There is some chronic interstitial changes bilaterally. The heart si ze is mildly enlarged but stable compared to the prior study. Osseous structures are intact and stabl e. No significant changes.. CONCLUSION: No acute intrathoracic disease. Stable examination. Electronically signed by: Armand Gallardo MD 12/17/2017 12:50 PM EDT
--- NOTE | 2017-12-17 12:53 | XR ---
EXAM DATE: 12/17/2017 12:41 PM EDT AGE/SEX: 87 years / Female INDICATIONS: Fall, left posterior mid femur pain. CLINICAL DATA: This is the patient's initial encounter. Patient reports that signs and symptoms have been present for 1 day and indicates a pain score of 5/10. MEDICAL/SURGICAL HISTORY: Diabetes mellitus type II. Chronic obstructive pulmonary disease. H ypertension. None. COMPARISON: [facility], PELVIS AP 1V, 12/17/2017. . FINDINGS: The bony structures of the left femur grossly intact. There is no acute fracture or joint dislocation of the left femur. However, there appears to be a nondisplaced fracture involving the superior and i nferior pubic ramus on the left side. Vascular calcifications are noted in the soft tissues character istic of PVD. CONCLUSION: 1. There are some nondisplaced fractures involving the superior and inferior pubic ramus on the left side. 2. No acute fracture or joint dislocation involving the femur. Electronically signed by: Armand Gallardo MD 12/17/2017 12:51 PM EDT
--- NOTE | 2017-12-17 12:54 | XR ---
EXAM DATE: 12/17/2017 12:43 PM EDT AGE/SEX: 87 years / Female INDICATIONS: Fall, left posterior mid femur pain. CLINICAL DATA: This is the patient's initial encounter. Patient reports that signs and symptoms have been present for 1 day and indicates a pain score of 5/10. MEDICAL/SURGICAL HISTORY: Diabetes mellitus type II. Chronic obstructive pulmonary disease. H ypertension. None. COMPARISON: [facility], FEMUR LEFT 2V, 12/17/2017. . FINDINGS: There are nondisplaced fractures involving the superior and inferior pubic ramus on the left. There i s good alignment of the SI joints and pubic symphysis. No joint dislocation at the hips are demonstra yaima. There are some mild degenerative changes at the hips. There are vascular calcifications consiste nt with PVD. CONCLUSION: Nondisplaced fractures involving the superior and inferior left pubic ramus. Electronically signed by: Armand Gallardo MD 12/17/2017 12:52 PM EDT
[2017-12-17] MEDS ORDERED: Sodium Chlor 0.9% Inj 500 ML IV.SIG ONE (13:01)
[2017-12-17 13:07] LABS: Bilirubin,Urine Negative (Negative); Clarity,Urine Clear (Clear); Color,Urine Yellow (Yellw/Straw); Glucose,Urine (UA) 250 mg/dL (Negative); Leukocyte Esterase,Urine Negative (Negative); Nitrite,Urine Negative (Negative); PH,Urine 5.5 (5.0-8.5); Specific Gravity,Urine 1.025 (1.002-1.035); Urobilinogen,Urine 0.2 mg/dL (Less than 2)
[2017-12-17 13:20] LABS: RBC,Urine 0-3 /hpf (0-3); Squamous Epithelial Cell,Urine 0-5 /hpf (0-5); WBC,Urine 0-5 /hpf (0-5)
[2017-12-17] MEDS ORDERED: Dextrose 50% in Water 50 ML Vial IV.PUSH PRN (13:49)
[2017-12-17] MEDS ORDERED: Acetaminophen 325 MG Tablet PO PRN (13:51)
--- NOTE | 2017-12-17 14:04 | P.HPIM ---
History of Present Illness Primary Care Physician: Aidan Yanez MD Chief Complaint: fall History of Present Illness: patient is a 87 y/o female with history of diabetes mellitus, hypertension, dyslipidemia, ,who was brought to ER after she fell at home. she says that she normally walks with a walker. this morning she had a fall after which she couldn 't stand up. then the daughter decided to bring her to ER. she says that she didn't have any prodromal symptoms before the fall including chest pain, sob, dizziness. she didn't pass out. she says that she as long as she doesn't move she doesn't have any pain. - Diagnosis (1) Pelvic fracture (2) Diabetes mellitus (3) Hypertension (4) CKD (chronic kidney disease) Inpatient Certification: I certify that the inpatient services were ordered in accordance with Medicare regulations governing the order. This includes certification that hospital inpatient services are reasonable and necessary and in the case of services not specified as inpatient-only under 42 CFR 419.22(n), that they are appropriately provided as inpatient services in accordance to with the 2-midnight benchmark under 43 CFR 412.3(e) Review of Systems All other systems reviewed negative except as stated in HPI PMFSH - History History Provided By: Patient, Family Member (Daughter) - Medical History Medical History: Medical History (Last Reviewed 12/17/17 @ 11:56 by Valentine Carlin MD) COPD (chronic obstructive pulmonary disease) Diabetes High blood cholesterol High blood pressure - Tobacco History Tobacco Use In Past 30 Days: No Smoking Status: Former smoker - Alcohol History How Often Do You Have a Drink Containing Alcohol: Never - Substance Use History Substance History: No History of Abuse - Travel History Recent Travel in the [place] Within the Last 8 Weeks: No Recent Travel Out of the Country Within the Last 8 Weeks: No - Immunization History Tetanus Immunization: <5 Years Tetanus Immunization Year if Known: Last month this year Hx Influenza Vaccine This Season: Yes Medications and Allergies Active Medications: Active Medications Acetaminophen (Tylenol) 650 mg PO Q4H PRN PRN Reason: fever/ pain 1-5 Hydrocodone Bitart/Acetaminophen ([place] 5/325) 1 tab PO Q4H PRN PRN Reason: pain 6-10 Aspirin (Ecotrin) 81 mg PO DAILY [facility] Dextrose (D50w Vial) 50 ml IV.PUSH UNSCH PRN PRN Reason: PER HYPOGLYCEMIA PROTOCOL Enoxaparin Sodium (Lovenox Inj) 40 mg SQ DAILY [facility] Glucagon (Glucagon Inj) 1 mg OTHER PRN PRN PRN Reason: for Hypoglycemia Protocol Insulin Human Regular (Novolin R Supplemental Scale) 0 units SQ ACHS [facility]; Protocol Losartan Potassium (Cozaar) 50 mg PO DAILY [facility] Non-Formulary Medication (Lovastatin [Lovastatin]) 10 mg PO HS [facility] Sodium Chloride (Ns Flush) 2 ml IV.FLUSH PRN PRN PRN Reason: FLUSH AFTER USING IV ACCESS Vitamin D (Vitamin D3) 1,000 unit PO DAILY [facility] Allergies Allergy/AdvReac Type Severity Reaction Status Date / Time No Known Allergies Allergy Unverified 12/17/17 11:34 Home Medications Medication Instructions Recorded Confirmed Type aspirin [Aspir-81] 81 mg PO DAILY 12/17/17 12/17/17 History cholecalciferol (vitamin D3) 1,000 unit PO DAILY 12/17/17 12/17/17 History [Vitamin D3] glyburide 5 mg PO HS 12/17/17 12/17/17 History losartan-hydrochlorothiazide 1 tab PO DAILY 12/17/17 History lovastatin 10 mg PO HS 12/17/17 12/17/17 History Exam Vital signs: Vital Signs 12/17/17 11:29 12/17/17 12:49 12/17/17 12:54 Temperature 97.9 F Pulse Rate 81 74 Respiratory Rate 16 16 16 Blood Pressure 155/107 H 160/61 H Pulse Oximetry 95 97 Intake & Output 12/16/17 12/17/17 12/17/17 18:59 06:59 18:59 Weight 69.3 kg - Constitutional no acute distress - Routine HEENT Exam Head: Present: atraumatic Eye: Present: PERRL - Routine Neck Exam Present: supple, full ROM - Routine Respiratory Exam Present: CTA bilaterally - Routine Cardiovascular Exam Present: RRR - Routine Abdominal Exam Present: soft - Routine Extremities Exam Comments: no pedal edema. - Routine Neurological Exam Present: alert, oriented X3 Results - Labs CBC & Chem 7: 12/17/17 12:00 12/17/17 12:00 Labs: Short CBC 12/17/17 Range/Units 12:00 WBC 10.2 (4.0-11.0) th/mm3 Hgb 10.6 L (11.6-15.3) gm/dL Hct 31.6 L (35.0-46.0) % Plt Count 241 (150-450) th/mm3 BMP 12/17/17 12:00 Sodium 134 L Potassium 4.6 Chloride 97 L Carbon Dioxide 25.9 BUN 23 H Creatinine 1.30 H Calcium 8.7 Cardiac Enzymes 12/17/17 Range/Units 12:00 Troponin I 0.02 (0.02-0.05) ng/mL Urine 12/17/17 Range/Units 12:00 Urine Color Yellow (Yellw/Straw) Urine Clarity Clear (Clear) Urine pH 5.5 (5.0-8.5) Ur Specific [place] 1.025 (1.002-1.035) Urine Protein Negative (Neg-Trace) mg/dL Urine Glucose (UA) 250 H (Negative) mg/dL - Imaging Impressions Chest X-Ray 12/17/17 11:47 CONCLUSION: No acute intrathoracic disease. Stable examination. Femur X-Ray 12/17/17 11:47 CONCLUSION: 1. There are some nondisplaced fractures involving the superior and inferior pubic ramus on the left side. 2. No acute fracture or joint dislocation involving the femur. Head CT 12/17/17 11:47 CONCLUSION: 1. No acute intracranial abnormalities. Pelvis X-Ray 12/17/17 11:47 CONCLUSION: Nondisplaced fractures involving the superior and inferior left pubic ramus. Caprini VTE Risk Assessment Caprini VTE Risk Assessment: Moderate/High Risk (score >= 2) Caprini Risk Assessment Model: Point Value = 1 Point Value = 2 Point Value = 3 Point Value = 5 Age 41-60 Minor surgery BMI > 25 kg/m2 Swollen legs Varicose veins or History of unexplained or recurrent spontaneous Oral contraceptives or hormone replacement Sepsis (< 1 month) Serious lung disease, including pneumonia (< 1 month) Abnormal pulmonary function Acute myocardial infarction Congestive heart failure (< 1 month) History of inflammatory bowel disease Medical patient at bed rest Age 61-74 Arthroscopic surgery Major open surgery (> 45 min) Laparoscopic surgery (> 45 min) Malignancy Confined to bed (> 72 hours) Immobilizing plaster cast Central venous access Age >= 75 History of VTE Family history of VTE Factor V Leiden Prothrombin [id number] Lupus anticoagulant Anticardiolipin antibodies Elevated serum homocysteine Heparin-induced thrombocytopenia Other congenital or acquired thrombophilia Stroke (< 1 month) Elective arthroplasty Hip, pelvis, or leg fracture Acute spinal cord injury (< 1 month) Prophylaxis Regimen: Total Risk Factor Score Risk Level Prophylaxis Regimen 0-1 Low Early ambulation 2 Moderate Order ONE of the following: *Sequential Compression Device (SCD) *Heparin 5000 units SQ BID 3-4 Higher Order ONE of the following medications: *Heparin 5000 units SQ TID *Enoxaparin/Lovenox 40 mg SQ daily (WT < 150 kg, CrCl > 30 mL/min) *Enoxaparin/Lovenox 30 mg SQ daily (WT < 150 kg, CrCl > 10-29 mL/min) *Enoxaparin/Lovenox 30 mg SQ BID (WT < 150 kg, CrCl > 30 mL/min) AND/OR *Sequential Compression Device (SCD) 5 or more Highest Order ONE of the following medications: *Heparin 5000 units SQ TID (Preferred with Epidurals) *Enoxaparin/Lovenox 40 mg SQ daily (WT < 150 kg, CrCl > 30 mL/min) *Enoxaparin/Lovenox 30 mg SQ daily (WT < 150 kg, CrCl > 10-29 mL/min) *Enoxaparin/Lovenox 30 mg SQ BID (WT < 150 kg, CrCl > 30 mL/min) AND *Sequential Compression Device (SCD) Assessment and Plan - Assessment (1) Pelvic fracture Code(s): S32.9XXA - Fracture of unspecified parts of lumbosacral spine and pelvis, initial encounter for closed fracture Status: Acute Plan: case was d/w the ortho surgery station chief who recommended conservative treatment with no surgical interventions- continue with pain control- consult PT and case management. (2) Diabetes mellitus Code(s): E11.9 - Type 2 diabetes mellitus without complications Status: Acute Plan: start on accu-check with SSI. (3) Hypertension Code(s): I10 - Essential (primary) hypertension Status: Acute Plan: resume Cozaar- continue to monitor and adjust the regimen as needed. (4) CKD (chronic kidney disease) Code(s): N18.9 - Chronic kidney disease, unspecified Status: Chronic Plan: continue to monitor. - Plan Discussed Condition With: ER physician and the patient. Discharge Planning: possible within the next 24-48 hrs- if pain is controlled- pending PT evaluation. (2) Diabetes mellitus Qualifiers: Diabetes mellitus type: type 2 (3) Hypertension Qualifiers: Hypertension type: essential hypertension Qualified Code(s): I10 - Essential (primary) hypertension (4) CKD (chronic kidney disease) Qualifiers: Chronic kidney disease stage: stage 3 (moderate) Qualified Code(s): N18.3 - Chronic kidney disease, stage 3 (moderate)
[2017-12-17] MEDS: Insulin NovoLIN Regular Correctional Sugar Inj SQ SCH ×2 (16:51→23:31)
--- NOTE | 2017-12-18 08:34 | P.PN ---
Subjective Interval history: in no acute distress. pain seems to be controlled.no new complaints. d/w the RN at the bedside. Physical Exam Vital signs: Vital Signs 12/17/17 11:29 12/17/17 12:49 12/17/17 12:54 Temperature 97.9 F Pulse Rate 81 74 Respiratory Rate 16 16 16 Blood Pressure 155/107 H 160/61 H Pulse Oximetry 95 97 12/17/17 14:01 12/17/17 16:00 12/17/17 20:00 Temperature 98 F 96.8 F L Pulse Rate 71 88 67 Respiratory Rate 18 18 18 Blood Pressure 151/60 H 138/78 141/63 H Pulse Oximetry 95 95 97 12/18/17 00:08 12/18/17 06:23 12/18/17 08:01 Temperature 97.6 F 98.0 F 96.8 F L Pulse Rate 66 70 64 Respiratory Rate 18 18 20 Blood Pressure 144/66 H 141/62 H 166/70 H Pulse Oximetry 99 95 95 Intake & Output 12/17/17 12/18/17 12/18/17 18:59 06:59 18:59 Intake Total 500 / 500 360 / 360 Output Total 3 / 3 Balance 500 / 500 357 / 357 Weight 69.3 kg 70.4 kg Intake: IV 500 / 500 NS Inj 500 ML @ Wide Open IV. 500 / 500 SIG BOLUS ONE Rx#:[id number] Oral 360 / 360 Output: Urine 3 / 3 Other: Date of Last Bowel Movement 12/17/17 - Constitutional no acute distress - Routine Respiratory Exam Present: CTA bilaterally - Routine Cardiovascular Exam Present: RRR - Routine Abdominal Exam Present: soft - Routine Extremities Exam Comments: no pedal edema. - Routine Neurological Exam Present: alert, oriented X3 Results - Labs CBC & Chem 7: 12/17/17 12:00 12/17/17 12:00 Laboratory Results - last 24 hr 12/17/17 12/17/17 12/17/17 12:00 12:00 12:00 CBC w Diff Auto diff final WBC 10.2 RBC 3.33 L Hgb 10.6 L Hct 31.6 L MCV 94.6 MCH 31.8 MCHC 33.6 RDW 12.7 Plt Count 241 MPV 6.8 L Neut % (Auto) 87.5 H Lymph % (Auto) 5.6 L [place] % (Auto) 4.8 Eos % (Auto) 0.7 Baso % (Auto) 1.4 Neut # (Auto) 8.9 H Lymph # (Auto) 0.6 L [place] # (Auto) 0.5 Eos # (Auto) 0.1 Baso # (Auto) 0.1 WBC Differential . Differential Comment . PT 10.4 INR 1.0 Sodium 134 L Potassium 4.6 Chloride 97 L Carbon Dioxide 25.9 Anion Gap 11 BUN 23 H Creatinine 1.30 H Estimated GFR 39 L POC Glucose Random Glucose 248 H Calcium 8.7 Troponin I 0.02 Ur Collection Type Urine Color Urine Clarity Urine pH Ur Specific [place] Urine Protein Urine Glucose (UA) Urine Ketones Urine Occult Blood Urine Nitrate Urine Bilirubin Urine Urobilinogen Ur Leukocyte Esterase Urine RBC Urine WBC Ur Squamous Epith Cells Hyaline Casts Micro UA Comment Urine Culture Comments 12/17/17 12/17/17 12/17/17 12:00 15:37 21:13 CBC w Diff WBC RBC Hgb Hct MCV MCH MCHC RDW Plt Count MPV Neut % (Auto) Lymph % (Auto) [place] % (Auto) Eos % (Auto) Baso % (Auto) Neut # (Auto) Lymph # (Auto) [place] # (Auto) Eos # (Auto) Baso # (Auto) WBC Differential Differential Comment PT INR Sodium Potassium Chloride Carbon Dioxide Anion Gap BUN Creatinine Estimated GFR POC Glucose 140 H 146 H Random Glucose Calcium Troponin I Ur Collection Type Clean catch Urine Color Yellow Urine Clarity Clear Urine pH 5.5 Ur Specific [place] 1.025 Urine Protein Negative Urine Glucose (UA) 250 H Urine Ketones Trace H Urine Occult Blood Negative Urine Nitrate Negative Urine Bilirubin Negative Urine Urobilinogen 0.2 Ur Leukocyte Esterase Negative Urine RBC 0-3 Urine WBC 0-5 Ur Squamous Epith Cells 0-5 Hyaline Casts 4-10 H Micro UA Comment Culture not ind Urine Culture Comments Culture not ind - Imaging Impressions Chest X-Ray 12/17/17 11:47 CONCLUSION: No acute intrathoracic disease. Stable examination. Femur X-Ray 12/17/17 11:47 CONCLUSION: 1. There are some nondisplaced fractures involving the superior and inferior pubic ramus on the left side. 2. No acute fracture or joint dislocation involving the femur. Head CT 12/17/17 11:47 CONCLUSION: 1. No acute intracranial abnormalities. Pelvis X-Ray 12/17/17 11:47 CONCLUSION: Nondisplaced fractures involving the superior and inferior left pubic ramus. Assessment and Plan - Assessment (1) Pelvic fracture Code(s): S32.9XXA - Fracture of unspecified parts of lumbosacral spine and pelvis, initial encounter for closed fracture Status: Acute Plan: case was previously d/w the ortho surgery simulation tech who recommended conservative treatment with no surgical interventions- continue with pain control- consulted PT and case management. (2) Diabetes mellitus Code(s): E11.9 - Type 2 diabetes mellitus without complications Status: Chronic Plan: started on accu-check with SSI. (3) Hypertension Code(s): I10 - Essential (primary) hypertension Status: Chronic Plan: resumed Cozaar- continue to monitor and adjust the regimen as needed. (4) CKD (chronic kidney disease) Code(s): N18.9 - Chronic kidney disease, unspecified Status: Chronic Plan: continue to monitor. - Plan Discharge Planning: dc planning to [facility]- hopefully today. (2) Diabetes mellitus Qualifiers: Diabetes mellitus type: type 2 (3) Hypertension Qualifiers: Hypertension type: essential hypertension Qualified Code(s): I10 - Essential (primary) hypertension (4) CKD (chronic kidney disease) Qualifiers: Chronic kidney disease stage: stage 3 (moderate) Qualified Code(s): N18.3 - Chronic kidney disease, stage 3 (moderate)
[2017-12-18] MEDS: Insulin NovoLIN Regular Correctional Sugar Inj SQ SCH (08:45)
[2017-12-18] MEDS ORDERED: Enoxaparin Inj 40 MG/0.4 ML Syringe SQ SCH (09:00)
--- NOTE | 2017-12-18 15:39 | ECG ---
Date Performed: 12/17/2017 Time Performed: 11:52:03 PTAGE: 87 years EKG: Sinus rhythm WITH FIRST DEGREE AV BLOCK ABNORMAL ECG PREVIOUS TRACING : 12/07/2017 16.23 No significant change from previous tracing noted. DOCTOR: Doroteo Clemente Interpretating Date/Time 12/18/2017 15:36:56
== END 2017-12-18 11:32 ==
LOC: PHED 11:26 → PHEDA 13:16 → PH3 14:10
PROVIDERS: ADMIT Internal Medicine; ATTEND Internal Medicine